=== PATIENT | male | born 1960 | race Caucasian/White ===

== ENCOUNTER 2018-05-25 12:21 | Inpatient (IN) | payer OTHER ==
[~2018-05-25] VITALS: Ht 177.8 cm; Wt 85.3 kg
[~2018-05-25 12:21] MED LIST: Augmentin 875-1 EACH; DULERA 100 MCG/13 GM INH; FLUSAL2505 INH; LEVO750 PO; PRED10; PRED20 PO; ROBITUSSIN NIG237 ML PO; SACC250C; SPIRIVA RESPIMAT4 G1 IH; TIOT18 INH; Ventolin/Prove6.7 GM INH
[2018-05-25 13:06] LABS: BASOPHILS ABSOLUTE AUTO 0.08 K/mm3 (0.00-0.23); BASOPHILS PERCENT AUTO 1 % (0-2); EOSINOPHILS ABSOLUTE AUTO 0.23 K/mm3 (0.00-0.68); EOSINOPHILS PERCENT AUTO 3 % (0-6); Hematocrit 39.9 % (37.0-53.0); Hemoglobin 11.7 g/dL (13.5-17.5); IMMATURE GRAN ABSOLUTE AUTO 0.05 K/mm3 (0.00-0.10); IMMATURE GRAN PERCENT AUTO 1 % (0-1); LYMPHOCYTES ABSOLUTE AUTO 1.26 K/mm3 (0.84-5.20); LYMPHOCYTES PERCENT AUTO 16 % (21-46); MONOCYTES ABSOLUTE AUTO 1.67 K/mm3 (0.16-1.47); MONOCYTES PERCENT AUTO 21 % (4-13); Mean Corpuscular HGB 28.4 pg (26.0-34.0); Mean Corpuscular HGB Conc 29.3 g/dL (31.5-36.5); Mean Corpuscular Volume 97 fL (80-100); Mean Platelet Volume 9.3 fL (9.1-12.4); NEUTROPHILS ABSOLUTE AUTO 4.67 K/mm3 (1.96-9.15); NEUTROPHILS PERCENT AUTO 59 % (41-73); Platelet Count 341 K/mm3 (150-400); RDW Coefficient Variation 12.4 % (11.7-14.2); RDW Standard Deviation 44.5 fL (35.1-46.3); Red Blood Cell Count 4.12 M/mm3 (4.30-5.90); White Blood Cell Count 7.96 K/mm3 (4.00-11.30)
[2018-05-25] MEDS ORDERED: ALBU90OI6 INH (13:16)
[2018-05-25 13:37] LABS: Alanine Aminotransfer (ALT/SGP 14 U/L (12-78); Albumin, Blood 2.7 g/dL (3.4-5.0); Albumin/Globulin Ratio 0.5 (0.8-1.8); Alk Phos 114 U/L (50-136); Anion Gap 5 mmol/L (6-16); Aspartate Aminotrans (AST/SGOT 8 U/L (12-37); Bilirubin, Total 0.3 mg/dL (0.1-1.0); Blood Urea Nitrogen 17 mg/dL (8-24); Bun/Creatinine Ratio 26.7 (12.0-20.0); CO2, Blood 36 mmol/L (21-32); Calcium, Blood 9.1 mg/dL (8.5-10.1); Chloride, Blood 96 mmol/L (98-108); Creatinine, Blood 0.64 mg/dL (0.60-1.20); Globulin, Blood 5.2 g/dL (2.2-4.0); Glomerular Filtration Rate >60 (60-); Glucose, Blood 110 mg/dL (70-99); Potassium, Blood 4.1 mmol/L (3.5-5.5); Sodium, Blood 137 mmol/L (136-145); Total Protein, Blood 7.9 g/dL (6.4-8.2)
[2018-05-25] MEDS ORDERED: DULERA 100 MCG/13 GM INH (15:06)
[2018-05-25 15:50] LABS: Influenza A Negative (NEGATIVE); Influenza B Negative (NEGATIVE)
[2018-05-26 05:41] LABS: BASOPHILS ABSOLUTE AUTO 0.06 K/mm3 (0.00-0.23); BASOPHILS PERCENT AUTO 1 % (0-2); EOSINOPHILS ABSOLUTE AUTO 0.24 K/mm3 (0.00-0.68); EOSINOPHILS PERCENT AUTO 3 % (0-6); Hematocrit 35.5 % (37.0-53.0); Hemoglobin 10.3 g/dL (13.5-17.5); IMMATURE GRAN ABSOLUTE AUTO 0.06 K/mm3 (0.00-0.10); IMMATURE GRAN PERCENT AUTO 1 % (0-1); LYMPHOCYTES ABSOLUTE AUTO 1.28 K/mm3 (0.84-5.20); LYMPHOCYTES PERCENT AUTO 17 % (21-46); MONOCYTES ABSOLUTE AUTO 1.44 K/mm3 (0.16-1.47); MONOCYTES PERCENT AUTO 19 % (4-13); Mean Corpuscular HGB 28.1 pg (26.0-34.0); Mean Corpuscular Volume 97 fL (80-100); Mean Platelet Volume 9.5 fL (9.1-12.4); NEUTROPHILS ABSOLUTE AUTO 4.61 K/mm3 (1.96-9.15); NEUTROPHILS PERCENT AUTO 60 % (41-73); Platelet Count 297 K/mm3 (150-400); RDW Coefficient Variation 12.3 % (11.7-14.2); RDW Standard Deviation 44.3 fL (35.1-46.3); Red Blood Cell Count 3.66 M/mm3 (4.30-5.90); White Blood Cell Count 7.69 K/mm3 (4.00-11.30)
[2018-05-26 05:58] LABS: Anion Gap 5 mmol/L (6-16); Blood Urea Nitrogen 13 mg/dL (8-24); Bun/Creatinine Ratio 19.2 (12.0-20.0); CO2, Blood 33 mmol/L (21-32); Calcium, Blood 8.2 mg/dL (8.5-10.1); Chloride, Blood 100 mmol/L (98-108); Creatinine, Blood 0.68 mg/dL (0.60-1.20); Glomerular Filtration Rate >60 (60-); Glucose, Blood 90 mg/dL (70-99); Potassium, Blood 4.2 mmol/L (3.5-5.5); Sodium, Blood 138 mmol/L (136-145)
--- NOTE | 2018-05-26 07:41 | NUR ---
PATIENT PERMISSION PATIENT GAVE THIS STUDENT NURSE PERMISSION TO PROVIDE CARE TODAY, 05/26/18 FROM [phone].
--- NOTE | 2018-05-26 11:13 | NUR ---
Patient gave me verbal permission on 05/26/18 to assist in his care on 05/27/18.
--- NOTE | 2018-05-26 17:59 | NUR ---
SHIFT SUMMARY PT REPORTS FEELING BETTER, BUT STILL HAS SEVERE DYSPNEA W/ ANY EXT. LUNGS VERY DIMINISHED. STILL UNABLE TO OBTAIN SPUTUM.
--- NOTE | 2018-05-27 18:03 | NUR ---
SHIFT SUMMARY BREATHING IMPROVED TODAY. PATIENT ANXIOUS FOR D/C TOMORROW BUT STATES HE FEELS BETTER.
--- NOTE | 2018-05-28 04:37 | NUR ---
DID GREAT DURING NIGHT. DENIES ANY SOB. STATES FEELING BACK TO BASELINE. REMAINS ON 3L O2 WHICH IS WHAT HE USES AT HOME. AMBULATES INDEPENDENTLY TO BR. TOLERATING PO, VOIDING WELL. PT STATES GOING HOME TODAY. CALL LIGHT IN REACH.
--- NOTE | 2018-05-28 10:30 | NUR ---
dr chiu by to see pt
[2018-05-28] MEDS ORDERED: AZIT250 PO (11:50)
--- NOTE | 2018-05-28 12:10 | NUR ---
discharge instructions reviewed with pt verbalized rx called to [facility] no acute changes wc escort to car
== END 2018-05-28 12:07 | disposition home or self-care (01) | DRG 193 ==
LOC: ER 12:21 → MEDS 14:51 → SURS 16:00
PROVIDERS: Emergency Medicine; Physician Assistant; ADMIT Hospitalist
DX: J18.9 Pneumonia, unspecified organism (principal); J96.21 Acute and chronic respiratory failure with hypoxia; J44.9 Chronic obstructive pulmonary disease, unspecified; Z99.81 Dependence on supplemental oxygen; Z87.891 Personal history of nicotine dependence
CPT/HCPCS: 36415; 71046; 80048; 80053; 83605; 85025; 87040; 87449; 87804; 90686; 93005; 93010; 94640; 94664; 94667; 94760; 96365; 96367; 96375; 98960; 99285-25; 99407; J0456; J0696; J1650; J1956; J3480; J7030; J7050

== ENCOUNTER → 2022-03-04 | Outpatient (CLI) | payer MEDICARE ==
[~2022-03-04] MED LIST changes: +ALBU90OI6 INH; +AZIT250 PO
[2022-03-04 09:59] LABS: Source, Urine Clean Catch
[2022-03-04 12:40] LABS: Appearance, Urine Clear (Clear); Bilirubin, Urine Neg (Neg); Blood, Urine 2+ (Neg); Color, Urine Yellow (P-Yellow); Glucose Qualitative, Urine Neg (Neg); Ketones, Urine Neg (Neg); Leukocyte Esterase, Urine Neg (Neg); Nitrite, Urine Neg (Neg); Protein, Urine Neg (Neg); Specific Gravity, Urine 1.005 (1.003-1.022); Urobilinogen, Urine NORM (Normal)
[2022-03-04 13:02] LABS: Bacteria Not Seen /hpf; Red Blood Cells, Urine 0-2 /hpf (0-2); Squamous Epithelial Cells Rare /hpf (Few); White Blood Cells, Urine 0-2 /hpf (0-5)
== END | disposition home or self-care (01) ==
LOC: LAB SHORT 09:57 → LAB 09:57
PROVIDERS: Physician Assistant
DX: Z76.82 Awaiting organ transplant status (principal)
CPT/HCPCS: 81001

== ENCOUNTER 2024-02-20 02:24 | Day surgery (SDC) | payer MEDICARE ==
[2024-02-20] MEDS ORDERED: FILGRASTIM-AYOW 480 MCG/0.8 ML 0.8MLSYR SC SCH (06:00)
[2024-02-20 11:11] VITALS: BP 139/80
== END 2024-02-20 11:14 | disposition home or self-care (01) ==
LOC: ATC 02:24
DX: D70.9 Neutropenia, unspecified (principal); J44.9 Chronic obstructive pulmonary disease, unspecified; Z79.899 Other long term (current) drug therapy; Z94.2 Lung transplant status; Z92.25 Personal history of immunosuppression therapy
CPT/HCPCS: 96372; Q5125

== ENCOUNTER 2024-06-21 15:02 | Emergency (ER) | payer MEDICARE ==
[~2024-06-21] VITALS: Ht 177.8 cm; Wt 95.2 kg
[2024-06-21 15:16] VITALS: BP 150/86
[2024-06-21] MEDS ORDERED: SULTRIDS PO (15:24)
== END 2024-06-21 15:30 | disposition home or self-care (01) ==
LOC: ER 15:02
DX: L03.114 Cellulitis of left upper limb (principal); S50.812A Abrasion of left forearm, initial encounter; J44.9 Chronic obstructive pulmonary disease, unspecified; Z94.2 Lung transplant status; Z87.891 Personal history of nicotine dependence; Z79.899 Other long term (current) drug therapy; W26.8XXA Contact with other sharp object(s), not elsewhere classified, initial encounter
CPT/HCPCS: 99283